=== PATIENT | female | born 1965 | race Caucasian/White ===

== ENCOUNTER 2020-04-21 13:08 | Emergency (ER) | payer SELFPAY ==
[~2020-04-21] VITALS: Ht 167.6 cm; Wt 135.2 kg
[~2020-04-21 13:08] MED LIST: Z.0.NORCO 5-325 TA1 PO
--- OUTSIDE RECORDS SUMMARY | 2020-04-21 13:27 | XMS REPORT | Continuity of Care Document ---
Author Author [facility] Organization [facility] Address [address] [place] [address] Phone Unavailable Care Team Providers Care Vp Product Name Role Phone Unavailable Unavailable Payers Payer Name Policy Type Policy Number Effective Date Expiration Date S ource Problems This patient has no known problems. Allergies, Adverse Reactions, Alerts Allergy Name Allergy Type Status Severity Reaction(s) Onset Date Inacti ve Date Treating Clinician Comments Source No Known Allergies DA Active U 2013-02-27 00:00:00 [facility] Medications This patient has no known medications. Procedures This patient has no known procedures. Results Test Description Test Time Test Comments Results Result Comments Source - XR CHEST 2 V 2019-04-19 19:37:00 FAX: Fritz Ramires MD [phone] [place]: St: REG -- Name: [facility] : 1965 Age/S: 54/F [address] [place] [address] Blvd Unit #: [id number] Loc: [place] [address] Phys: Fritz Craig MD Acct: [id number] Dis Date: Status: REG ER PHONE #: [phone] Exam Date: 04/19/20191922 FAX #: [phone] Reason: COUGH EXAMS: CPT CODE: [id number] XR CHEST 2 V 13849 CHEST, SINGLE VIEW HISTORY: Cough Comparison made to prior chest x-ray dated 02/02/19. FINDINGS: There is infiltrate in the left lower lobe. The right lung is clear. No pneumothorax or significant pleural fluid The heart size and pulmonary vascularity are stable. IMPRESSION: Left lung base infiltrate consistent with pneumonia. SL:01 at 1937 Reported and signed by: Greg Stockton M.D. CC: Fritz Craig MD Technologist: RT Pawan(Rob)R Trnscrd Date/Time/By: 04/19/2019 (1936) : By: Jarek Orig Print D/T: S: 04/19/2019 (1939) PAGE 1 Signed Report URINALYSIS COMPLETE 2019-02-02 17:15:00 Test Item UA COLOR (test code = COLU) YELLOW YEL/STRAW UA APPEARANCE (test code = APPU) TURBID CLEAR A UA GLUCOSE DIPSTICK (test code = DGLUU) NEGATIVE NEGATIVE UA BILIRUBIN DIPSTICK (test code = BILU) NEGATIVE NEGATIVE UA KETONE DIPSTICK (test code = KETU) NEGATIVE NEGATIVE UA SPECIFIC GRAVITY (test code = SGU) 1.025 1.005-1.030 N UA BLOOD DIPSTICK (test code = SELINA) NEGATIVE NEGATIVE UA PH DIPSTICK (test code = REINALDO) 5.0 5.0-7.0 N UA PROTEIN DIPSTICK (test code = PROU) NEGATIVE NEGATIVE UA UROBILINIOGEN DIPSTICK (test code = URO) 2.0 mg/dL 0.2-1.0 A UA NITRITE DIPSTICK (test code = LISSET) POSITIVE NEGATIVE A UA LEUKOCYTE ESTERASE DIPSTICK (test code = LEUU) TRACE NEGA TIVE A UA WBC (test code = WBCU) 10-20 WBC/HPF 0-3 A UA RBC (test code = RBCU) 4-10 RBC/HPF 0-3 UA BACTERIA (test code = BACU) NONE SEEN /HPF NONE SEEN UA SQUAMOUS CELLS (test code = SQU) 11-25 /HPF NONE SEEN A UA AMORPHOUS SEDIMENT (test code = AMORU) 4+ /HPF NONE A - CT ABD PELVIS [id number] 16:33:[address] [facility] 1965 Age/S: 53 / F [address] [place] [address] Unit #: [id number] Loc: [place] [address] Phys: Verónica Reddy PRODUCTION ARTIST Acct: [id number] Dis Date: Status: REG ER PHONE #: [phone] Exam Date: 02/02/2019 1624 FAX #: [phone] Reason: ruq pain EXAMS: CPT CODE: [id number] CT ABD PELVIS W/CONT 40921 Clinical Indication: ruq pain Comparison: CT abdomen pelvis October 27, 2012 TECHNIQUE: Helical imaging was performed after injection of IV contrast, from the lung base through the symphysis with multiplanar reformations obtained. IV CONTRAST: 100 mL of Isovue-300 GI CONTRAST: Oral contrast was administered. DLP: 663 mGy-cm FINDINGS: CT ABDOMEN AND PELVIS WITH CONTRAST: LUNG BASE: The lung bases are clear. LIVER: The liver is enlarged measuring 25.2 cm in cranial to caudal dimension with diffuse hepatic steatosis. No intrahepatic biliary ductal dilatation is seen. The portal vein is normal in caliber. GALLBLADDER: The gallbladder has been surgically removed. PANCREAS: The pancreas is unremarkable. The pancreatic duct is normal in caliber. SPLEEN: The spleen is normal in size and there are no parenchymal abnormalities. ADRENALS: The right adrenal gland is unremarkable. The left adrenal gland is unremarkable. KIDNEYS: The kidneys demonstrates normal contrast enhancement. There are no masses. There is no evidence of renal or ureteral calculi. There is no evidence of hydronephrosis. BOWEL: The visualized portion of the esophagus is unremarkable. The stomach is unremarkable. The small bowel is normal in caliber and there is no evidence of masses or obstruction. The colon is normal in caliber without any masses. APPENDIX: The appendix is nonvisualized and there are no secondary inflammatory changes near the cecum to suggest an acute appendicitis. PELVIS: There are no pelvic masses. The urinary bladder is unremarkable. The uterus and ovaries are not visualized. PAGE 1 Signed Report (CONTINUED) Name: [facility] [place] : 1965 Age/S: 53 / F [address] [facility] Unit #: [id number] Loc: [place] [address] Phy s: Verónica Reddy NP Acct: [id number] Dis Date: Status: REG ER PHONE #: [phone] Exam Date: 02/02/2019 1624 FAX #: [phone] Reason: ruq pain EXAMS: CPT CODE: [id number] CT ABD PELVIS W/CONT 41967 <Continued> PERITONEUM: There is no evidence for free intraperitoneal fluid or air. SOFT TISSUES: The soft tissues are unremarkable. There is no evidence of masses or hernias. LYMPH NODES: There is no evidence of mesenteric, retroperitoneal, or inguinal lymphadenopathy. VASCULATURE: The abdominal aorta is normal in caliber. The branches of the abdominal aorta are widely patent. MUSCULOSKELETAL: The visualized bony skeleton is unremarkable. IMPRESSION: 1. No acute findings in the abdomen and pelvis to explain symptoms. 2. Hepatomegaly with diffuse hepatic steatosis. 3. Cholecystectomy. SL: [id number] at 1633 Reported and signed by: Danie Arguelles M.D. CC: Petey Mendez DO; Verónica Reddy NP Technologist:RT Areli(R)(CT) CTDI: DLP: Trnscb Date/Time: 02/02/2019 (1633) t.[email or web address] Orig Print D/T: S: 02/02/2019 (0006) PAGE 2 Signed Report - CT HEAD/BRAIN W/O [id number] 16:23:[address] Name: [facility] Yonathan Kirk : 1965 Age/S: 53 / F [address] [facility] Unit #: [id number] Loc: [place] [address] Phys: Verónica Reddy NP Acct: [id number] Dis Date: Status: REG ER PHONE #: [phone] Exam Date: 02/02/2019 1624 FAX #: [phone] Reason: dizziness EXAMS: CPT CODE: [id number] CT HEAD/BRAIN W/O CONT 47319 Clinical Indication: dizziness; Comparison: None TECHNIQUE: CT images were obtained from the foramen magnum to the vertex without the use of intravenous contrast on a multidetector CT. Coronal and sagittal reconstructions were obtained. CT radiation dose DLP: 464 mGy-cm FINDINGS: BRAIN PARENCHYMA: There are normal mario-white interfaces, sulci and gyri. There are no focal mass lesions on this noncontrast head CT. There is no mass effect, midline shift or edema. There are no intra-axial or extra- axial fluid collections, intraventricular or intraparenchymal hemorrhage. The pineal, sellar, brainstem, cerebellum and skull base regions appear unremarkable. VENTRICLES: The lateral ventricles, third and fourth ventricles appear unremarkable. The basilar cisterns are normal. ORBITS, MASTOIDS AND PARANASAL SINUSES: The visualized orbits and p aranasal sinuses are unremarkable. The mastoid air cells are clear. SKULL: There are no osseous abnormalities. If there is further concern for intracranial pathology or acute stroke, MRI of the brain may b e performed for complete assessment. IMPRESSION: Unrema rkable noncontrast head CT with no mass, hemorrhage or subacute stroke. SL: [id number] El ectronically Signed by Michael Arguelles on 02/02/2019 at 3283 Reported and signed by: Danie Arguelles M.D. PAGE 1 Signed Report (CONTINUED) Name: [facility] : 1965 Age/S: 53 / F [address] [place] [address] Unit #: [id number] Loc: [place] [address] Phys: Verónica Reddy NP Acct: [id number] Dis Date: Status: REG ER PHONE #: [phone] Exam Date: 0 02/02/2019 1629 FAX #: [phone] Reason: dizziness EXAMS: CPT CODE: [id number] CT HEAD/BRAIN W/O CONT 11144 <Continued> CC: Petey Mendez DO; Verónica Reddy NP Technologist:Kayla Forman, RT(R)(CT) CTDI: DLP: Trnscb Date/Time: 02/02/2019 (1623) [email or web address] Orig Print D/T: S: 02/02/2019 (1425) PAGE 2 Signed Report - XR CHEST 1 [id number] 15:25:00 FAX: Petey Schaefer DO [phone] [place]: St: REG FAX: Verónica Reddy NP [phone] Name: [facility] : 1965 Age/S: 53/F [address] [place] [address] Unit #: [id number] Loc: [place] [address] Phys: Verónica Reddy NP Acct: [id number] Dis Date: Status: REG ER PHONE #: [phone] Exam Date: 02/02/2019 1510 FAX #: [phone] Reason: ruq pain EXAMS: CPT CODE: [id number] XR CHEST 1 V 04859 Clinical Indication: ruq pain Comparison: None FINDINGS: The frontal chest radiograph shows normal lung volumes. No interstitial or airspace opacities are seen. No pleural effusions are present. No pneumothorax is seen. The heart is enlarged. There are no clinically significant osseous abnormalities noted. IMPRESSION: 1. No chest radiographic evidence of acute cardiopulmonary disease. 2. Cardiomegaly. SL: [id number] at 1525 Reported and signed by: Danie Arguelles M.D. CC: Petey Mendez DO; Verónica Reddy NP Technologist: RT Joby(Rob) Trnscrd Date/Time/By: 02/02/2019 (6409) : By: BrandenV Orig Print D/T: S: 02/02/2019 (3545) PAGE 1 Signed Report BASIC METABOLIC [id number] 15:16:00* Test Item Value Reference Range Interpretation Comments SODIUM (test code = NA) 136 mEq/L 134-147 N POTASSIUM (test code = K) 4.4 mEq/L 3.4-5.0 N CHLORIDE (test code = CL) 103 mEq/L 100-108 N CARBON DIOXIDE (test code = CO2) 26 mEq/L 21-33 N ANION GAP (test code = GAP) 11 0-20 N GLUCOSE (test code = GLU) 181 mg/dL 70-110 H BLOOD UREA NITROGEN (test code = BUN) 8 mg/dL 7-18 N GLOMERULAR FILTRATION RATE (test code = GFR) 75.0 90-95 L Units of measure = ml/min/1.73 m2 CREATININE (test code = CREAT) 0.8 mg/dL 0.6-1.3 N CALCIUM (test code = CA) 8.5 mg/dL 8.0-10.5 N HEPATIC FUNCTION [id number] 15:16:00* Test Item Value Reference Range Interpretation Comments TOTAL PROTEIN (test code = PROT) 7.7 g/dL 6.4-8.2 N ALBUMIN (test code = ALB) 3.20 g/dL 3.4-5.0 L BILIRUBIN TOTAL (test code = BILT) 0.30 mg/dL 0.0-1.0 N BILIRUBIN DIRECT (test code = BILD) < 0.10 MG/DL 0.0-0.30 BILIRUBIN INDIRECT (test code = BILIND) 0.20 MG/DL SGOT/AST (test code = AST) 55 IUnit/L 15-37 H SGPT/ALT (test code = ALT) 40 IUnit/L 15-65 N ALKALINE PHOSPHATASE TOTAL (test code = ALKP) 143 IUnit/L 20-125 H [id number] 15:16:00* Test Item Value Reference Range Interpretation Comments LIPASE (test code = LIP) 162 IUnit/L 73-393 N [id number] 15:16:00* Test Item Value Reference Range Interpretation Comments TROPONIN-I (test code = TROPI) < 0.015 ng/mL 0.000-0.045 N Negative: <= 0.045 Positive: >= 0.046 Correlation with serial results, other cardiac markers andclinical findings is necessary to determine the clinicalsignificance of this result. Results using different methodologies should not be comparedto one another as quantitative results may vary by method. CBC W/AUTO [id number] 15:03:00* Test Item Value Reference Range Interpretation Comments WHITE BLOOD CELL (test code = WBC) 7.03 x10 3/uL 4.5-11.0 N RED BLOOD CELL (test code = RBC) 4.70 x10 6/uL 3.54-5.02 N HEMOGLOBIN (test code = HGB) 14.5 g/dL 11.0-15.0 N HEMATOCRIT (test code = HCT) 44.6 % 33.0-45.0 N MEAN CELL VOLUME (test code = MCV) 94.9 fL 81.0-99.0 N MEAN CELL HGB (test code = MCH) 30.9 pg 27.0-33.0 N MEAN CELL HGB CONCETRATION (test code = MCHC) 32.5 g/dL 33.0-37. 0 L RED CELL DISTRIBUTION WIDTH CV (test code = RDW) 13.2 % 11.5- 14.5 N RED CELL DISTRIBUTION WIDTH SD (test code = RDW-SD) 46.0 fL 37 .0-54.0 N PLATELET COUNT (test code = PLT) 255 x10 3/uL 150-400 N MEAN PLATELET VOLUME (test code = MPV) 9.6 fL 7.0-9.0 H NEUTROPHIL % (test code = NT%) 53.6 % 56.0-77.0 L IMMATURE GRANULOCYTE % (test code = IG%) 0.3 % 0.0-2.0 N LYMPHOCYTE % (test code = LY%) 34.1 % 14.0-32.0 H MONOCYTE % (test code = MO%) 8.8 % 4.8-9.0 N EOSINOPHIL % (test code = EO%) 2.6 % 0.3-3.7 N BASOPHIL % (test code = BA%) 0.6 % 0.0-2.0 N NUCLEATED RBC % (test code = NRBC%) 0.0 % 0-0 N NEUTROPHIL # (test code = NT#) 3.77 x10 3/uL 2.0-7.6 N IMMATURE GRANULOCYTE # (test code = IG#) 0.02 x10 3/uL 0.00-0.03 N LYMPHOCYTE # (test code = LY#) 2.40 x10 3/uL 1.0-3.8 N MONOCYTE # (test code = MO#) 0.62 x10 3/uL 0.1-0.8 N EOSINOPHIL # (test code = EO#) 0.18 x10 3/uL 0.0-0.2 N BASOPHIL # (test code = BA#) 0.04 x10 3/uL 0.0-0.2 N NUCLEATED RBC # (test code = NRBC#) 0.00 x10 3/uL 0.0-0.1 N MANUAL DIFF REQUIRED (test code = MDIFF) NO
[2020-04-21] MEDS ORDERED: TRAMADOL HCL 50 MG TAB PO NR (14:00)
--- NOTE | 2020-04-21 14:33 | Diagnostic Imaging Report ---
Radiographs of the right knee 3 views HISTORY: Pain COMPARISON: None FINDINGS: Bones: No acute displaced fracture. Osseous alignment is within normal limits. Joints: Moderate tricompartmental degenerative arthrosis most pronounced in the medial compartment with joint space narrowing and peripheral osteophytosis. No osseous erosion. Soft tissues: Small effusion IMPRESSION: Moderate tricompartmental degenerative arthrosis most pronounced in the medial compartment with joint space narrowing and peripheral osteophytosis. No osseous erosion. Signed by: Dr. Noe Clayton M.D. on 04/21/2020 2:30 PM
--- NOTE | 2020-04-21 16:07 | Emergency Department Note ---
History of Present Illnes History of Present Illness Chief Complaint: Extremity Trauma/Pain History of Present Illness This is a 55 year old female STATES RT KNEE PAIN X ONE MONTHS ANTERIOR AND POSTERIOR. NO INJURY NO TRAUMA. PT AAOX4. WALKING WITH CANE STATES ONSET TODAY. PT STATES TAKING ADVIL NOT HELPING. PT HAS NOT SEEN ANYBODY IN ONE MONTH OF PAIN. NO HX DVT'S. +SMOKER . Historian: Patient Arrival Mode: Car Take Out Waitress Required: No Onset (how long ago): month(s) Location: R knee Quality: Aching Radiation: Reports non-radiation Severity: moderate Onset quality: gradual Duration (how long): month(s) Timing of current episode: constant Progression: worsening Chronicity: chronic Context: Denies trauma/injury Relieving factors: none Exacerbating factors: movement Associated symptoms: Reports denies other symptoms Treatments prior to arrival: NSAID Past Medical/Family History Physician Review I have reviewed the patient's past medical and family history. Any updates have been documented here. Past Medical History Recent Fever: No Clinical Suspicion of Infectio: No New/Unexplained Change in Ment: No Other Medical History: MORBID OBESITY. Past Surgical History: Cholecysctectomy, Hysterectomy Social History Smoking Cessation: Current every day smoker Counseling Performed: No Alcohol Use: None Any Illegal Drug Use: No Physically hurt or threatened: No Other Last Tetanus: unknown Any Pre-Existing Lines (PICC,: Yes Review of Systems Review of Systems Constitutional: Reports no symptoms EENTM: Reports no symptoms Cardiovascular: Reports no symptoms Respiratory: Reports no symptoms Gastrointestinal: Reports no symptoms Genitourinary: Reports no symptoms Musculoskeletal: Reports no symptoms, Reports joint pain (R knee) Integumentary: Reports no symptoms Neurological: Reports no symptoms Psychological: Reports no symptoms Endocrine: Reports no symptoms Hematological/Lymphatic: Reports no symptoms Physical Exam Related Data Allergies: Coded Allergies: No Known Allergies (Unverified , 12/02/11) Triage Vital Signs Vital Signs Date Time Temp Pulse Resp B/P (MAP) Pulse Ox O2 Delivery O2 Flow Rate FiO2 04/21/20 13:19 97.6 76 16 108/65 100 Room Air Physical Exam CONSTITUTIONAL Constitutional: Present well-developed, Present well-nourished HENT HENT: Present normocephalic, Present atraumatic, Present oropharynx clear/moist, Present nose normal HENT L/R: Present left ext ear normal, Present right ext ear normal EYES Eyes: Reports PERRL, Reports conjunctivae normal NECK Neck: Present ROM normal PULMONARY Pulmonary: Present effort normal, Present breath sounds normal CARDIOVASCULAR Cardiovascular: Present regular rhythm, Present heart sounds normal, Present capillary refill normal, Present normal rate GASTROINTESTINAL Abdominal: Present soft, Present nontender, Present bowel sounds normal GENITOURINARY Genitourinary: Present exam deferred SKIN Skin: Present warm, Present dry MUSCULOSKELETAL Musculoskeletal: Present ROM normal, Present other (Pulses 2+/intact in BLE and sensation intact. No erythema of the knee or swelling); Absent edema, Absent deformity, Absent tenderness, Absent swelling NEUROLOGICAL Neurological: Present alert, Present oriented x 3, Present no gross motor or sensory deficits PSYCHOLOGICAL Psychological: Present mood/affect normal, Present judgement normal Assessment & Plan Medical Decision Making MDM 55 y.o F presents for R knee pain ongoing x months. Initial differential inclu milka arthritis VS DVT vs nony abnormality vs joint effusion. Exam shows no sig edema, erythema, or effusion. Doubt septic joint. X-ray benign but shows arthritis. DVT US Nl. She will f/u w/ Ortho and continue to take NSAIDS/Tylenol and use compressive wrap as needed. Patient appropriate for DC. Reassessment Reassessment time: 16:30 Reassessment Well appearing, NAD Assessment & Plan Final Impression: (1) Arthritis of knee Depart Disposition: HOME, SELF-CARE Last Vital Signs Date Time Temp Pulse Resp B/P (MAP) Pulse Ox O2 Delivery O2 Flow Rate FiO2 04/21/20 13:19 97.6 76 16 108/65 100 Room Air Home Meds Reported Medications Hydrocodone Bit/Acetaminophen ([place] 5-325 Tablet) 1 Each Tablet, 1 EACH PO 12/02/11 Medications in the ED Tramadol HCl 50 mg ONCE PO ; Start 04/21/20 at 14:00; Stop 04/21/20 at 14:59; Status DC CIARRA LITTLE MD Apr 21, 2020 16:07
== END 2020-04-21 15:50 | disposition home or self-care (01) ==
LOC: ER 13:15
DX: M25.561 Pain in right knee (principal); M17.11 Unilateral primary osteoarthritis, right knee; E66.01 Morbid (severe) obesity due to excess calories; F17.210 Nicotine dependence, cigarettes, uncomplicated
CPT/HCPCS: 93971; 99283